=== PATIENT | male | born 1950 | race Caucasian/White ===

== ENCOUNTER 2019-09-23 14:08 | Emergency (ER) | payer OTHER, SELFPAY ==
[~2019-09-23] VITALS: Ht 177.8 cm; Wt 133.9 kg
[2019-09-23 14:17] VITALS: BP 158/88
[2019-09-23] MEDS ORDERED: PROPARACAINE OPHTH 0.5%, 15ML ONE (14:58)
== END 2019-09-23 15:40 | disposition home or self-care (01) ==
LOC: ED 15:09
DX: H43.392 Other vitreous opacities, left eye (principal); I10 Essential (primary) hypertension; J44.9 Chronic obstructive pulmonary disease, unspecified
CPT/HCPCS: 99284